=== PATIENT | male | born 1955 | race Caucasian/White ===

== ENCOUNTER 2016-10-18 12:15 | Emergency (ER) | payer SELFPAY ==
[2016-10-18] MEDS ORDERED: DECADRON IM ONE (14:50)
[2016-10-18] MEDS ORDERED: BENADRYL PO ONE (14:50)
--- NOTE | 2016-10-18 16:09 | Emergency Department Report ---
Entered by RICHIE FOWLER, acting as scribe for FREYA GOODE PA. HPI - General Chief Complaint: Skin Rash Time Seen by Provider: 10/18/16 14:15 - HPI HPI: 60 y/o male patient presents for evaluation of a skin rash that is progressively worsening. Notes irritation, itching and redness for the past 2 weeks. Concern for potential allergic reaction. He denies cough, wheezing or difficultly in breathing. He does not recall any exposure to new foods or detergents. He has used cream with no relief noted. When exposed to the sun the rash begins to welt. He has not followed up with dermatology. Denies any fever or chills. ED Past Medical Hx - Past Medical History Previous Medical History?: No - Surgical History Past Surgical History?: No - Family History Family history: hypertension - Social History Smoking Status: Current Every Day Smoker Substance Use Type: Alcohol, Cocaine, Marijuana, Other - Medications Home Medications: Home Medications Medication Instructions Recorded Confirmed Last Taken Type Cetirizine HCl [ZyrTEC] 10 mg PO QDAY #14 capsule 10/18/16 Unknown Rx hydrOXYzine HCL [Atarax] 25 mg PO QHS PRN #10 tablet 10/18/16 Unknown Rx predniSONE [Deltasone] 50 mg PO QDAY #5 tab 10/18/16 Unknown Rx ED Review of Systems ROS: Stated complaint: SKIN IRRITATION Other details as noted in HPI Comment: All other systems reviewed and negative Constitutional: denies: chills, fever Eyes: denies: eye pain, eye discharge, vision change ENT: denies: ear pain, throat pain Respiratory: denies: cough, shortness of breath, wheezing Cardiovascular: denies: chest pain, palpitations Endocrine: no symptoms reported Gastrointestinal: denies: abdominal pain, nausea, diarrhea Genitourinary: denies: urgency, dysuria Musculoskeletal: denies: back pain, joint swelling, arthralgia Skin: rash, pruritus. denies: lesions Neurological: denies: headache, weakness, paresthesias Physical Exam - Physical Exam Vital Signs: Vital Signs 10/18/16 12:20 Temperature 98 F Pulse Rate 91 H Respiratory 20 Rate Blood Pressure 156/88 O2 Sat by Pulse 100 Oximetry General: 60 y/o male patient, no acute distress, well appearing Physical Exam: Physical Exam: Head: Normocephalic, atraumatic Mouth: Moist, no pharyngeal exudate or erythema. Uvula is midline and oral airway is patent. No facial swelling. No peritonsillar abscesses. Nose: Normal external appearance, no drainage. Maxillary and frontal sinuses nontender to palpation Neck: Supple, no C-spine tenderness, no tracheal deviation. Nontender to palpation. no adenopathy Ears: Bilateral TMs ar without any redness, swelling, or drainage. Bilateral EAC without any redness, swelling, or drainage. Abdomen: Soft, nontender to palpation in all quadrants, normal bowel sounds in all quadrants and negative CVA tenderness bilaterally. Eyes: Bilateral pupils equal and reactive to light, bilateral EOM intact. Bilateral sclera and conjunctiva without injection. Normal accommodation. Lungs: Clear to auscultation bilaterally, no rhonchi, wheezes, or rales. Normal work of breathing. No use of accessory muscles Extremities: No CCE. +2 pulses. No neurovascular compromise Cardiovascular: S1-S2, regular rate, regular rhythm. No murmurs. Skin: dry scaly, patches bilateral UE, sparsely scattered to neck, various morphology, some are maculopapular rash, others are patches that are flat, no induration, no signs of infection Psych: Normal mood and behavior ED Course Vital Signs 10/18/16 12:20 Temperature 98 F Pulse Rate 91 H Respiratory 20 Rate Blood Pressure 156/88 O2 Sat by Pulse 100 Oximetry - Reevaluation(s) Reevaluation #1: 10/18/16 15:54 given Benadryl and Decadron in the emergency room for contact dermatitis. ED Medical Decision Making - Medical Decision Making D course: Patient here with family complaining of rash to upper extremity and spread into neck area. Denies pain but reports itching and redness. He does not know anything that he came in contact with that he could've been allergic to. I discussed with patient that he has contact dermatitis which an allergic reaction from something in his environment. I discussed the patient that I will treat him but he is going to need follow-up with a loss prevention and safety manager. Patient was given Benadryl 50 mg IM and Decadron 10 mg IM and emergency room with no adverse reaction. Discharged home with his family in stable condition with prescription for prednisone and Zyrtec and also to take Atarax at night. Critical care attestation.: If time is entered above; I have spent that time in minutes in the direct care of this critically ill patient, excluding procedure time. ED Disposition Clinical Impression: Pruritic dermatitis Contact dermatitis Qualifiers: Contact dermatitis type: unspecified Contact dermatitis trigger: unspecified trigger Qualified Code(s): L25.9 - Unspecified contact dermatitis, unspecified cause Disposition: DISCHARGED TO HOME OR SELFCARE Is pt being admited?: No Does the pt Need Aspirin: No Condition: Stable Instructions: Contact Dermatitis (ED), Itchy Skin (ED), Acute Rash (ED) Additional Instructions: Please follow up with loss prevention and safety manager as instructed. Refer to discharge instruction paperwork for referral. He can also follow up with [facility]. Please state medication as prescribed. Prescriptions: hydrOXYzine HCL [Atarax] 25 mg PO QHS PRN #10 tablet PRN Reason: Itching Cetirizine HCl [ZyrTEC] 10 mg PO QDAY #14 capsule predniSONE [Deltasone] 50 mg PO QDAY #5 tab Referrals: YADY EASTON MD [Staff Physician] - 10/22/16 [facility] [Outside] - 10/22/16 Forms: Accompanied Note, Work/School Release Form(ED) This documentation as recorded by the MALCOLM roca SHALANE,accurately reflects the service I personally performed and the decisions made by me,FREYA GOODE PA.
[2016-10-18 16:16] VITALS: BP 142/82
== END 2016-10-18 16:15 | disposition home or self-care (01) ==
LOC: ED 12:15
DX: L30.8 Other specified dermatitis (principal); F17.200 Nicotine dependence, unspecified, uncomplicated; F14.10 Cocaine abuse, uncomplicated; F12.10 Cannabis abuse, uncomplicated
CPT/HCPCS: 96372; 99282; J1100

== ENCOUNTER 2019-06-18 11:40 | Emergency (ER) | payer SELFPAY ==
[2019-06-18] MEDS ORDERED: chlordiazePOXIDE 25 MG CAP PO PRN (12:45)
[2019-06-18] MEDS ORDERED: LORazepam 2 MG TAB PO PRN ×2 (12:45)
--- NOTE | 2019-06-18 12:49 | Emergency Department Report ---
Chief Complaint: Back Pain/Injury Stated Complaint: PALL ALL OVER/NECK/URINE PAIN - HPI History of Present Illness: 63 y/o male p/w "blanking out" a few days ago, did not seek medical attention, now with head pain neck pain abd pain. no urinary retenrion. he has some post void dribblingno fecal incontinence no saddle anesthesia walks with a steady gait gcs 15 sober at this time daily etoh use ct head/c spine (for neck pain), ct a/p, labs, ua ekg, xr chest ,main er side Vital Signs 06/18/19 12:47 Temperature 97.6 F Pulse Rate 92 H Respiratory 20 Rate Blood Pressure 146/71 O2 Sat by Pulse 98 Oximetry MSE screening note: Focused history and physical exam performed. Due to findings the following was ordered: ED Disposition for MSE Condition: Stable
--- NOTE | 2019-06-18 13:33 | XRay Report ---
CHEST 1 VIEW INDICATION: back pain, syncope. COMPARISON: None. FINDINGS: Support devices: None. Heart: Within normal limits. Lungs/Pleura: No acute air space or interstitial disease. Additional findings: None. IMPRESSION: No acute abnormality. Signer Name: Noel Grossman MD Signed: 06/18/2019 1:28 PM Workstation Name: [id number]
[2019-06-18 14:10] LABS: Hematocrit 32.1 % (35.5-45.6); Hemoglobin 10.7 gm/dl (11.8-15.2); Mean Corpuscular HGB Conc 33 % (32-34); Mean Corpuscular Volume 87 fl (84-94); Platelet Count 141 K/mm3 (140-440)
[2019-06-18 14:30] LABS: Alanine Aminotransferase 5 units/L (7-56); Albumin 3.6 g/dL (3.9-5); BUN/Creatinine Ratio 13; Blood Urea Nitrogen 10 mg/dL (9-20); Calcium 9.4 mg/dL (8.4-10.2); Hemolysis Index 3
--- NOTE | 2019-06-18 14:52 | Cat Scan Report ---
CT ABDOMEN AND PELVIS WITHOUT CONTRAST INDICATION: Lower abdominal pain for 3 days. COMPARISON: No relevant prior imaging study available. TECHNIQUE: Axial, coronal and sagittal CT imaging of the abdomen and pelvis was performed without co ntrast. Lack of intravenous contrast limits evaluation of the vascular and solid organs. All CT sca ns at this location are performed using CT dose reduction for ALARA by means of automated exposure co ntrol. FINDINGS: LOWER CHEST: No significant abnormality. LIVER: No significant abnormality. BILIARY: No significant abnormality. PANCREAS: No significant abnormality. SPLEEN: No significant abnormality. ADRENALS: No significant abnormality. KIDNEYS AND URETERS: Right lower renal pole stones measure up to 3 mm. There is a 1-2 mm stone at the right UVJ. Moderate right hydroureteronephrosis is seen. Generalized edema is noted throughout the r ight kidney. There is a 3.5 mm left lower renal pole stone without significant obstruction. No additi onal significant abnormality. GI TRACT: No significant abnormality of the stomach, small bowel or colon. Unremarkable appendix. PERITONEUM: No free fluid. No free air. No fluid collection. LYMPH NODES: No significant adenopathy. VASCULATURE: The aorta is normal in caliber with moderate generalized atherosclerosis. URINARY BLADDER: There is marked distention of the bladder without an additional significant abnormal ity. REPRODUCTIVE ORGANS: The prostate gland is enlarged and measures 5.0 x 4.7 cm. ADDITIONAL FINDINGS: None. SKELETAL SYSTEM: Widespread sclerotic bone metastases are seen without an acute abnormality. IMPRESSION: 1. Moderate right hydroureteronephrosis with a 1-2 mm stone at the right UVJ. 2. Nonobstructive bilateral renal stones as above. 3. Nonspecific urinary bladder distention. 4. Additional findings as above. Signer Name: Cuba Aponte MD Signed: 06/18/2019 2:47 PM Workstation Name: [id number]
[2019-06-18 14:55] LABS: Bilirubin,Urine NEG (Negative); Blood,Urine NEG (Negative); Color,Urine Yellow (Yellow); Protein,Urine <15 mg/dL mg/dL (Negative); Urobilinogen,Urine < 2.0 mg/dL (<2.0)
--- NOTE | 2019-06-18 15:03 | Cat Scan Report ---
CT head/brain wo con INDICATION / CLINICAL INFORMATION: 63 years Male; Trauma. TECHNIQUE: Routine CT head without contrast. All CT scans at this location are performed using CT dos e reduction for ALARA by means of automated exposure control. COMPARISON: None. FINDINGS: BRAIN / INTRACRANIAL CONTENTS: There is extensive cerebral white matter disease most consistent with microvascular angiopathy at. There is mild cerebral atrophy with associated prominence of the ventric ular system. There is no clear CT evidence of acute intracranial hemorrhage or significant mass effec t. ORBITS: No significant abnormality of visualized orbits. SINUSES / MASTOIDS: No significant abnormality the visualized paranasal sinuses or mastoid air cells. CRANIOCERVICAL JUNCTION: No significant abnormality. ADDITIONAL FINDINGS: None. IMPRESSION: 1. There is extensive microvascular angiopathy and mild cerebral atrophy without CT evidence of acute intracranial hemorrhage. Signer Name: Timmy Chauhan MD Signed: 06/18/2019 2:59 PM Workstation Name: [id number]
--- NOTE | 2019-06-18 15:05 | Cat Scan Report ---
CT cervical spine spine without contrast INDICATION: Trauma. Neck pain after a fall 2 days ago TECHNIQUE: Axial imaging performed through the cervical spine without the use of contrast. Sagittal and coronal reconstructed images were also reviewed. All CT scans at this location are performed us ing CT dose reduction for ALARA by means of automated exposure control. COMPARISON: None FINDINGS: Alignment: There is 2 mm of retrolisthesis of C3 on C4 and 2 mm of anterolisthesis of C4 on C5. Othe rwise normal alignment. Bones: There is no acute osseous abnormality. Mild multilevel discogenic DJD is present. There is also multifocal osteoblastic metastatic disease with no pathologic fracture. Soft tissues: No acute soft tissue abnormality identified. Incidental note made of dense atheroscler otic disease within the carotid bulbs. IMPRESSION: 1. No acute abnormality identified. 2. 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 Signer Name: Allen Ferguson MD Signed: 06/18/2019 3:00 PM Workstation Name: [id number]
[2019-06-18 15:10] LABS: Calcium Oxalate Crystals,Urine Rare; Mucus,Urine 2+ /HPF
[2019-06-18 16:56] LABS: Eosinophils % (Manual) 0 % (0.0-4.3); Total Cells Counted 100
[2019-06-18 16:57] LABS: Anisocytosis 1+; Platelet Estimate Consistent w Auto; Stomatocytes Few; Tear Drop Cells Rare
[2019-06-18 20:07] VITALS: BP 133/90
--- NOTE | 2019-06-18 21:09 | Emergency Department Report ---
ED Fall HPI - General Chief Complaint: Back Pain/Injury Stated Complaint: PALL ALL OVER/NECK/URINE PAIN Time Seen by Provider: 06/18/19 20:11 Source: patient Mode of arrival: Ambulatory - History of Present Illness Initial Comments: This is a 63-year-old male nontoxic, well nourished in appearance, no acute signs of distress presents to the ED with c/o of neck pain and headache s/p syncopal episode a few weeks ago. Patient denies any lower or mid back pains. Patient describes headache as diffuse with level of 3 out of 10. Patient denies thunderclap headache. Patient denies any radiation of pain. Patient denies any visual changes. Patient denies worse headache. Patient stated has some urinary leakage but stated is able to control bladder otherwise. Patient denies any numbness, tingling, fever, chills, nausea, vomiting, chest pain, shortness of breath, stiff neck. Patient denies facial drooping or one sided weakness. Patient denies any allergies. PMH includes ETOH daily but otherwise denies any PMH. MD Complaint: fall -: week(s) When Fall Occurred: # days [employer] (2 weeks) Fall Witnessed: yes, by family Place Fall Occurred: home Loss of Consciousness: yes, second(s) Prolonged Down Time?: no Symptoms Prior to Fall: lightheadedness, dizziness Location: head, neck Severity: mild Severity scale (0 -10): 8 Quality: aching Associated Symptoms: headache, neck pain. denies: numbness, weakness, chest paint, shortness of breath, abdominal pain, hematuria, unable to walk, lightheaded, vertigo, confusion - Related Data Previous Rx's Medication Instructions Recorded Last Taken Type Cetirizine HCl [ZyrTEC] 10 mg PO QDAY #14 capsule 10/18/16 Unknown Rx hydrOXYzine HCL [Atarax] 25 mg PO QHS PRN #10 tablet 10/18/16 Unknown Rx predniSONE [Deltasone] 50 mg PO QDAY #5 tab 10/18/16 Unknown Rx Cyclobenzaprine [Flexeril] 10 mg PO QHS PRN #10 tablet 06/18/19 Unknown Rx Naproxen 500 mg PO Q12H PRN #5 tablet 06/18/19 Unknown Rx Allergies Allergy/AdvReac Type Severity Reaction Status Date / Time No Known Allergies Allergy Verified 06/18/19 11:42 ED Review of Systems ROS: Stated complaint: PALL ALL OVER/NECK/URINE PAIN Other details as noted in HPI Constitutional: denies: chills, fever Eyes: denies: eye pain, eye discharge, vision change ENT: denies: ear pain, throat pain Respiratory: denies: cough, shortness of breath, wheezing Cardiovascular: denies: chest pain, palpitations Endocrine: no symptoms reported Gastrointestinal: denies: abdominal pain, nausea, diarrhea Genitourinary: denies: urgency, dysuria Musculoskeletal: other (neck pain). denies: back pain, joint swelling, arthralgia Skin: denies: rash, lesions Neurological: headache. denies: weakness, numbness, paresthesias, confusion, abnormal gait, vertigo Psychiatric: denies: anxiety, depression Hematological/Lymphatic: denies: easy bleeding, easy bruising ED Past Medical Hx - Past Medical History Previous Medical History?: No - Surgical History Past Surgical History?: No - Social History Smoking Status: Current Every Day Smoker Substance Use Type: Alcohol, Marijuana - Medications Home Medications: Home Medications Medication Instructions Recorded Confirmed Last Taken Type Cetirizine HCl [ZyrTEC] 10 mg PO QDAY #14 capsule 10/18/16 Unknown Rx hydrOXYzine HCL [Atarax] 25 mg PO QHS PRN #10 tablet 10/18/16 Unknown Rx predniSONE [Deltasone] 50 mg PO QDAY #5 tab 10/18/16 Unknown Rx Cyclobenzaprine [Flexeril] 10 mg PO QHS PRN #10 tablet 06/18/19 Unknown Rx Naproxen 500 mg PO Q12H PRN #5 tablet 06/18/19 Unknown Rx ED Physical Exam - General Limitations: No Limitations General appearance: alert, in no apparent distress - Head Head exam: Present: atraumatic, normocephalic - Eye Eye exam: Present: normal appearance, PERRL, EOMI - Neck Neck exam: Present: normal inspection, full ROM. Absent: tenderness, meningismus, lymphadenopathy - Respiratory Respiratory exam: Present: normal lung sounds bilaterally. Absent: respiratory distress, wheezes, rales, rhonchi, stridor, chest wall tenderness, accessory muscle use, decreased breath sounds, prolonged expiratory - Cardiovascular Cardiovascular Exam: Present: regular rate, normal rhythm, normal heart sounds. Absent: bradycardia, tachycardia, irregular rhythm, systolic murmur, diastolic murmur, rubs, gallop - GI/Abdominal GI/Abdominal exam: Present: soft, normal bowel sounds. Absent: distended, tenderness, guarding, rebound, rigid, diminished bowel sounds - Extremities Exam Extremities exam: Present: normal inspection, full ROM, normal capillary refill. Absent: tenderness, joint swelling, calf tenderness - Back Exam Back exam: Present: normal inspection, full ROM, paraspinal tenderness (cervical area), vertebral tenderness (cervical area). Absent: tenderness, CVA tenderness (R), CVA tenderness (L), muscle spasm, rash noted - Expanded Back Exam Expanded Back exam: Absent: saddle anesthesia Back exam: Negative Straight Leg Raising: Left, Right - Neurological Exam Neurological exam: Present: alert, oriented X3, normal gait - Expanded Neurological Exam Expanded Patient oriented to: Present: person, place, time Cranial nerves: EOM's Intact: Normal, Facial Sensation: Normal Cerebellar function: Finger to Nose: Normal Upper motor neuron: Pronator Drift: Normal, Sensory Extinction: Normal Motor strength exam: RUE: 5, LUE: 5, RLE: 5, LLE: 5 Best Eye Response ([place]): (4) open spontaneously Best Motor Response ([place]): (6) obeys commands Best Verbal Response ([place]): (5) oriented [place] Total: 15 - Psychiatric Psychiatric exam: Present: normal affect, normal mood - Skin Skin exam: Present: warm, dry, intact, normal color. Absent: rash ED Course Vital Signs 06/18/19 06/18/19 12:47 20:06 Temperature 97.6 F Pulse Rate 92 H 88 Respiratory 20 18 Rate Blood Pressure 146/71 Blood Pressure 133/90 [Left] O2 Sat by Pulse 98 96 Oximetry - Reevaluation(s) Reevaluation #1: 06/18/19 21:14 Patient is speaking in full sentences with no signs of distress noted. Reevaluation #2: 06/18/19 21:41 Patient status started to have some paraspinal cervical pain. Patient will be receiving Tylenol with codeine and is present at the discharge is stable, the patient home after discharge. - Consultations Consultation #1: 06/18/19 21:14 Patient has been consulted with Dr. Roger V about patient history, physical exam, and labs/CT and Xray results and agrees for discharge instructions with follow-up. ED Medical Decision Making - Lab Data Result diagrams: 06/18/19 13:44 06/18/19 13:44 - EKG Data Interpretation: normal EKG, other (skin S T abnormalities) 06/18/19 21:[address] Seay - Medical Decision Making This is a 63-year-old male that presents with fall with syncopal episode. Patient is stable was examined by me. There is no lumbar or throacic spinal tenderness. Consulted with Dr. Duran about patient. Xrays and CT scans are unremarkable. Normal neuro exam. There is no cauda equina syndrome during examination. No bladder or bowel instability. Patient stated currently has no symptoms. Patient was referred to Follow-up with a primary care doctor in 3-5 days or if symptoms worsen and continue return to emergency room as soon as possible. At time of discharge, the patient does not seem toxic or ill in appearance. No acute signs of distress noted. [facility] No further questions noted by the patient. This chart is dictated with using [employer] Lab Dictation Program Critical care attestation.: If time is entered above; I have spent that time in minutes in the direct care of this critically ill patient, excluding procedure time. ED Disposition Clinical Impression: Fall Qualifiers: Encounter type: initial encounter Qualified Code(s): W19.XXXA - Unspecified fall, initial encounter Syncope Qualifiers: Syncope type: unspecified Qualified Code(s): R55 - Syncope and collapse Cervical muscle strain Qualifiers: Encounter type: initial encounter Qualified Code(s): S16.1XXA - Strain of muscle, fascia and tendon at neck level, initial encounter Disposition: - TO HOME OR SELFCARE Is pt being admited?: No Does the pt Need Aspirin: No Condition: Stable Instructions: Syncope (ED), Muscle Strain (ED), Cyclobenzaprine (By mouth) Additional Instructions: Follow-up with your primary care doctor in 3-5 days or if symptoms worsen such as bladder or bowel stability, chest pain, short of breath, numbness or tingling sensation in extremities, headache, dizziness, visual changes, nausea vomiting, or abdominal pain, return back to emergency room as was possible. Take Naproxen and Flexeril as prescribed. Do not operate heavy machinery while taking Flexeril due to sedation Prescriptions: Cyclobenzaprine [Flexeril] 10 mg PO QHS PRN #10 tablet PRN Reason: Muscle Spasm Naproxen 500 mg PO Q12H PRN #5 tablet PRN Reason: Pain , Severe (7-10) Referrals: PRIMARY CAREMD [Primary Care Provider] - 3-5 Days HENNY THOMPSON MD [Staff Physician] - 3-5 Days [facility] [Outside] - 3-5 Days
[2019-06-18] MEDS ORDERED: ACETAMINOPHEN W/CODEINE 300-30 MG TAB PO ONE (21:41)
== END 2019-06-18 22:00 | disposition home or self-care (01) ==
LOC: ED 11:40
DX: S16.1XXA Strain of muscle, fascia and tendon at neck level, initial encounter (principal); R51 Headache; R55 Syncope and collapse; F17.200 Nicotine dependence, unspecified, uncomplicated; F12.10 Cannabis abuse, uncomplicated; Z79.899 Other long term (current) drug therapy; W19.XXXA Unspecified fall, initial encounter; Y93.89 Activity, other specified; Y92.410 Unspecified street and highway as the place of occurrence of the external cause; Y99.8 Other external cause status
CPT/HCPCS: 36415; 70450; 71045; 72125; 74176; 80053; 80320; 81001; 82550; 83735; 84484; 85007; 85025; 85730; 87086; 93005; 93010; G0480